=== PATIENT | female | born 1960 | race Caucasian/White ===

== ENCOUNTER 2018-10-27 11:10 | Outpatient (CLI) | payer OTHER ==
--- NOTE | 2018-10-27 12:03 | RAD ---
RADIOGRAPH CHEST 2 VIEW: DATE: 10/27/2018 HISTORY: 58-year-old female for disability examination. FINDINGS: The thoracic aorta is tortuous and ectatic. There is no evidence of airspace density, pulmonary edema , or pneumothorax. There is no cardiomegaly or pleural effusion. IMPRESSION: 1) No acute cardiopulmonary findings. 2) ectasia of thoracic aorta.
--- NOTE | 2018-10-27 12:04 | RAD ---
Exam: Lumbar spine 2 views HISTORY: Disability evaluation. Comparison none FINDINGS: 5 lumbar type vertebral bodies. Vertebral body height is maintained. No fracture. Vacuum di sc phenomenon at L2-L3. 8 mm of anterolisthesis of L4 forward on L5. No definite associated spondylolysis. Incidental left hip arthroplasty is noted. IMPRESSION: 1. Vacuum disc phenomenon at L5 to-L3. 2. Grade 1 anterolisthesis of L4 upon L5.
--- NOTE | 2018-10-27 12:05 | RAD ---
Exam: One view pelvis HISTORY: Disability evaluation. Pain. FINDINGS: Bilateral frog-leg lateral views of the hips do not demonstrate any malalignment or fractur e, with regard to the right hip. Left hip arthroplasty is noted. Visualized bony pelvis is intact. IMPRESSION: Unremarkable exam.
--- NOTE | 2018-10-27 12:06 | RAD ---
Radiograph pelvis one view: DATE: 10/27/2018 HISTORY: 58-year-old female with pelvic pain. Disability examination. FINDINGS: Pelvic ring is intact. At right hip there is mild joint space narrowing, mild to moderate superior acetabular sclerosis and osteophytosis, and moderate subcapital osteophytosis. No collapse of the right femoral head. Minimal irregularity of right femoral head. Left hip metallic acetabular cup articulates with metalli c femoral head and neck components. SI joints are bilaterally normal. Facet DJD bilaterally at L4-5, high-grade. IMPRESSION: 1. Moderate osteoarthrosis of the right hip. 2. Status post total left hip replacement arthroplasty. 3. High-grade bilateral facet osteoarthrosis at L4-5.
== END 2018-10-27 11:11 | disposition home or self-care (01) ==
LOC: BICRAD 11:10
PROVIDERS: ATTEND Internal Medicine
DX: Z02.71 Encounter for disability determination (principal); M16.11 Unilateral primary osteoarthritis, right hip; M47.816 Spondylosis without myelopathy or radiculopathy, lumbar region; M43.16 Spondylolisthesis, lumbar region; I77.810 Thoracic aortic ectasia; Z96.642 Presence of left artificial hip joint
CPT/HCPCS: 71046; 72100; 72170

== ENCOUNTER 2018-10-28 08:53 | Outpatient (CLI) | payer BC ==
--- NOTE | 2018-10-28 09:55 | BD ---
BONE DENSITOMETRY: INDICATIONS: Postmenopausal osteoporosis screening. FINDINGS: LUMBAR SPINE BMD (g/cm2) T-SCORE L1 1.092 0.9 L2 1.167 1.3 L3 1.253 1.5 L4 1.268 1.9 TOTAL 1.196 1.4 FEMORAL NECK 1.002 1.4 TOTAL 1.210 2.2 IMPRESSION: The bone mineral density of the lumbar spine and femoral neck are within the normal range. POS: [facility]
== END 2018-10-28 08:54 | disposition home or self-care (01) ==
LOC: BICMAMMO 08:53
PROVIDERS: ATTEND Advanced Practice Midwife
DX: Z13.820 Encounter for screening for osteoporosis (principal)
CPT/HCPCS: 77080

== ENCOUNTER 2018-10-30 08:45 | Outpatient (CLI) | payer BC ==
--- NOTE | 2018-10-30 15:29 | RAD ---
ABDOMEN 1 VIEW: HISTORY: Renal calculi. FINDINGS: The upper pole of the right kidney is not completely included on this study. No overt renal calculi, although certainly a small calculi may be obscured by gas and some fecal material in the colon. IMPRESSION: No overt renal calculi demonstrated. POS: C
== END 2018-10-30 08:46 | disposition home or self-care (01) ==
LOC: BICRAD 08:45
PROVIDERS: ATTEND Urology
DX: N20.0 Calculus of kidney (principal)
CPT/HCPCS: 74018